=== PATIENT | female | born 1970 | race Caucasian/White ===

== ENCOUNTER 2019-01-11 22:36 | Emergency (ER) | payer OTHER ==
[2019-01-11] MEDS ORDERED: ASPIRIN 81 MG CHEWABLE TAB PO ONE (22:44)
[2019-01-11 22:57] LABS: PLATELET COUNT 251 10^3/uL (150-400)
--- NOTE | 2019-01-11 23:23 | EDPHY ---
H & P Stated Complaint: Sharp chest pain, nausea, L arm numbness Time Seen by Provider: 01/11/19 22:43 HPI/ROS: HPI The patient presents with chest pain which began at 10:20 p.m. While she was at rest on the couch watching a television show with her family. She developed left-sided chest heaviness which radiates toward her back. This was associated with nausea, dizziness, left arm numbness. This was constant and had no alleviating or exacerbating factors. Over the last 3 weeks she has occasionally noticed some mild chest pain, she reports she has felt it while driving. She has not been sick recently with a URI type symptoms. She has not had a cough. She has not had leg swelling or recent airplane travel. She has had breast MRI, biopsy of her right breast recently. At that time, it was observed that her blood pressure was slightly elevated about 140s to 150 systolic over 80s to 90s diastolic. REVIEW OF SYSTEMS 10 systems were reviewed and negative with the exception of the elements mentioned in the history of present illness. PMHx: History of fibroids, history of section Soc Hx: Nonsmoker, at the bedside is Dr. Villeda FHx: Mother with peripheral vascular disease, hypertension PHYSICAL General Appearance: Alert, no distress Eyes: Pupils equal and round no pallor or injection ENT, Mouth: Mucous membranes moist Respiratory: There are no retractions, lungs are clear to auscultation Cardiovascular: Regular rate and rhythm , no chest wall tenderness Gastrointestinal: Abdomen is soft and non-tender, no masses, bowel sounds normal Neurological: A&O, moves all extremities Skin: Warm and dry, no rashes Musculoskeletal: Neck is supple non tender Extremities: symmetrical, full range of motion Psychiatric: Patient is oriented X 3, there is no agitation Source: Patient Exam Limitations: No limitations - Personal History LMP (Females 10-55): 1-7 Days Ago Current Tetanus Diphtheria and Acellular Pertussis (TDAP): Yes - Medical/Surgical History Hx Asthma: No Hx Chronic Respiratory Disease: No Hx Diabetes: No Hx Cardiac Disease: No Hx Renal Disease: No Hx Cirrhosis: No Hx Alcoholism: No Hx HIV/AIDS: No Hx Splenectomy or Spleen Trauma: No Other PMH: med hx-none,fibroids. [id number],acl,myomectomy - Social History Smoking Status: Never smoked Constitutional: Initial Vital Signs Temperature (C) 36.8 C 01/11/19 22:38 Heart Rate 76 01/11/19 22:38 Respiratory Rate 17 01/11/19 22:38 Blood Pressure 170/143 H 01/11/19 22:38 O2 Sat (%) 96 01/11/19 22:38 O2 Delivery Mode Room Air O2 (L/minute) 2 Allergies/Adverse Reactions: No Known Allergies Allergy (Verified 07/01/16 08:47) Home Medications: Medication Instructions Recorded AZITHROMYCIN [Z-PACK] 250 - 500 mg PO DAILY #6 tab 07/01/16 Medical Decision Making - Diagnostics EKG Interpretation: EKG #1: Complete interpretation has been separately recorded in the [facility] archive. Summary impression: Normal sinus rhythm, no ST segment change EKG #2: Complete interpretation has been separately recorded in the [facility] archive. Summary impression: Normal sinus rhythm, unchanged from initial. Imaging Results: Imaging Impressions Chest X-Ray 01/11/19 22:44 Impression: No evidence of acute cardiopulmonary abnormality. Differential Diagnosis: 48-year-old female who is healthy presents with left-sided chest pain, radiating toward her back associated with nausea without vomiting and left arm numbness/heaviness. This began at rest at about 10:20 p.m. Tonight. She has no prior history of similar, however over the last 3 weeks has had some mild intermittent chest pains. Here, her blood pressure is markedly elevated. The remainder of her physical exam is normal. Initial EKG, chest x-ray, troponin are all normal. She is relatively asymptomatic here. Plan for 4 hr troponin and repeat EKG, monitor symptoms here. Patient was observed for several hours here with improvement in her symptoms. Repeat EKG and troponin were unremarkable. I feel she can be discharged home safely. I have put in a referral for outpatient cardiac follow-up as I do believe she would benefit from outpatient stress test in the next several days. I have considered ACS, GERD, costochondritis, pulmonary embolism, pneumonia, pneumothorax as the cause of her symptoms. She feels comfortable being discharged home, out of caution, I have recommended a baby aspirin. Patient's blood pressures improved in the emergency department and had normalized by the time of discharge, I think at this point this is something that should be watched. HEART score calculated at 3, hopeful that pt will not require hospitalization. - Data Points Laboratory Results: Laboratory Results 01/11/19 22:50 01/11/19 22:50 01/12/19 01/11/19 01/11/19 02:33 22:52 22:50 WBC RBC Hgb Hct MCV MCH MCHC RDW Plt Count MPV Neut % (Auto) Lymph % (Auto) Parker % (Auto) Eos % (Auto) Baso % (Auto) Nucleat RBC Rel Count Absolute Neuts (auto) Absolute Lymphs (auto) Absolute Monos (auto) Absolute Eos (auto) Absolute Basos (auto) Absolute Nucleated RBC Immature Gran % Immature Gran # D-Dimer Sodium 139 mEq/L mEq/L (135-145) Potassium 3.5 mEq/L mEq/L (3.5-5.2) Chloride 106 mEq/L mEq/L (97-110) Carbon Dioxide 23 mEq/l mEq/l (22-31) Anion Gap 10 mEq/L mEq/L (6-14) BUN 13 mg/dL mg/dL (7-23) Creatinine 0.6 mg/dL mg/dL (0.6-1.0) Estimated GFR > 60 Glucose 116 mg/dL H mg/dL (70-100) Calcium 8.7 mg/dL mg/dL (8.5-10.4) POC Troponin I 0.00 ng/mL ng/mL 0.00 ng/mL ng/mL (0.00-0.08) (0.00-0.08) 01/11/19 01/11/19 22:50 22:50 WBC 7.69 10^3/uL 10^3/uL (3.80-9.50) RBC 4.88 10^6/uL 10^6/uL (4.18-5.33) Hgb 13.8 g/dL g/dL (12.6-16.3) Hct 41.6 % % (38.0-47.0) MCV 85.2 fL fL (81.5-99.8) MCH 28.3 pg pg (27.9-34.1) MCHC 33.2 g/dL g/dL (32.4-36.7) RDW 12.7 % % (11.5-15.2) Plt Count 251 10^3/uL 10^3/uL (150-400) MPV 8.5 fL L fL (8.7-11.7) Neut % (Auto) 48.3 % % (39.3-74.2) Lymph % (Auto) 41.4 % % (15.0-45.0) Parker % (Auto) 6.6 % % (4.5-13.0) Eos % (Auto) 2.6 % % (0.6-7.6) Baso % (Auto) 0.8 % % (0.3-1.7) Nucleat RBC Rel Count 0.0 % % (0.0-0.2) Absolute Neuts (auto) 3.72 10^3/uL 10^3/uL (1.70-6.50) Absolute Lymphs (auto) 3.18 10^3/uL H 10^3/uL (1.00-3.00) Absolute Monos (auto) 0.51 10^3/uL 10^3/uL (0.30-0.80) Absolute Eos (auto) 0.20 10^3/uL 10^3/uL (0.03-0.40) Absolute Basos (auto) 0.06 10^3/uL 10^3/uL (0.02-0.10) Absolute Nucleated RBC 0.00 10^3/uL 10^3/uL (0-0.01) Immature Gran % 0.3 % % (0.0-1.1) Immature Gran # 0.02 10^3/uL 10^3/uL (0.00-0.10) D-Dimer < 0.27 ug/mLFEU ug/mLFEU (0.00-0.50) Sodium Potassium Chloride Carbon Dioxide Anion Gap BUN Creatinine Estimated GFR Glucose Calcium POC Troponin I Medications Given: Discontinued Medications Aspirin (Aspirin) 324 mg PO EDNOW ONE Stop: 01/11/19 22:45 Last Admin: 01/11/19 22:52 Dose: 324 mg Point of Care Test Results: Chemistry 01/12/19 01/11/19 02:33 22:52 POC Troponin I 0.00 ng/mL ng/mL 0.00 ng/mL ng/mL (0.00-0.08) (0.00-0.08) Departure - Departure Disposition: Home, Routine, Self-Care Clinical Impression: Elevated blood pressure reading Chest pain Qualifiers: Chest pain type: unspecified Qualified Code(s): R07.9 - Chest pain, unspecified Condition: Good Instructions: Chest Pain (ED) Additional Instructions: The cause of your chest pain is not entirely clear. Your EKG, troponin testing , chest x-ray, other laboratories were thankfully normal here. I would like for you to monitor your symptoms at home. Your blood pressure has decreased since you arrived in the emergency department though should be followed up on by her primary care doctor. I have put in a referral for [facility] for you to undergo a stress test. If you do not hear from them in 1-2 days, please call them to arrange for a stress test. Until you have the stress test, I would recommend you take aspirin 81 mg once daily. Referrals: Jonnie Gibbs MD [Primary Care Provider] - As per Instructions [facility] [Provider Group] - As per Instructions
[2019-01-12 03:01] VITALS: BP 135/88
--- NOTE | 2019-01-12 07:40 | CPEKG ---
Test Reason : OPEN Blood Pressure : / mmHG Vent. Rate : 084 BPM Atrial Rate : 085 BPM P-R Int : 139 ms QRS Dur : 081 ms QT Int : 378 ms P-R-T Axes : 042 046 041 degrees QTc Int : 447 ms Sinus rhythm Confirmed by Tawny Coburn ([id number]) on 01/12/2019 7:40:08 AM Referred By: Tawny Coburn Confirmed By:Tawny Coburn
--- NOTE | 2019-01-12 07:40 | CPEKG ---
Test Reason : OPEN Blood Pressure : / mmHG Vent. Rate : 072 BPM Atrial Rate : 073 BPM P-R Int : 147 ms QRS Dur : 078 ms QT Int : 396 ms P-R-T Axes : 047 045 040 degrees QTc Int : 434 ms Sinus rhythm Confirmed by Tawny Coburn ([id number]) on 01/12/2019 7:40:02 AM Referred By: Tawny Coburn Confirmed By:Tawny Coburn
[2019-01-13] MEDS ORDERED: ISOPROTERENOL HCL/D5W 0.2 MG/50 ML BAG IV ONE (11:02)
== END 2019-01-12 03:00 | disposition home or self-care (01) ==
DX: R03.0 Elevated blood-pressure reading, without diagnosis of hypertension (principal); R07.89 Other chest pain
CPT/HCPCS: 84484-ER